=== PATIENT | male | born 1980 | race African-American/Black ===

== ENCOUNTER 2017-01-08 04:46 | Inpatient (IN) | payer OTHER ==
[2017-01-08] MEDS ORDERED: Albuterol/Ipratropium NEB.SOL* Albuterol 2.5 MG/Ipratropium 0.5 MG 3 ML ONE ×2 (04:55→08:47)
[2017-01-08] MEDS ORDERED: predniSONE TAB* 20 MG PO ONE (04:58)
[2017-01-08] MEDS ORDERED: Albuterol/Ipratropium NEB.SOL* Albuterol 2.5 MG/Ipratropium 0.5 MG 3 ML INH ONE ×2 (04:58→05:54)
[2017-01-08] MEDS ORDERED: NS 0.9% 1000 ML* 1,000 ML IV ONE ×3 (05:07→09:46)
[2017-01-08] MEDS ORDERED: Magnesium Sulfate 1 GM IV* 1 GM/100 ML BAG IV ONE ×2 (05:16→07:28)
[2017-01-08] MEDS: Albuterol/Ipratropium NEB.SOL* Albuterol 2.5 MG/Ipratropium 0.5 MG 3 ML INH ONE ×2 (05:27→08:49)
[2017-01-08] MEDS ORDERED: EPINEPHrine AMP 1 MG/ML IM ONE (05:53)
[2017-01-08 06:29] LABS: Hematocrit 42 % (42-52); Hemoglobin 14.2 g/dl (14.0-18.0); Mean Corpuscular HGB Conc 34 g/dl (31-36); Mean Corpuscular Hemoglobin 32 pg (27-31); Mean Corpuscular Volume 93 fL (80-94); Mean Platelet Volume 7 um3 (7.4-10.4); Platelet Count 211 10^3/ul (150-450); Red Cell Distribution Width 15 % (10.5-15); White Blood Count 9.6 10^3/ul (3.5-10.8)
[2017-01-08] MEDS ORDERED: EPINEPHrine,Rac 2.25% NEB.SOL* 0.5 ML INH ONE (06:39)
[2017-01-08 06:45] LABS: EGFR Non-African American 79.5 (>60)
[2017-01-08] MEDS ORDERED: NS 0.9% 1000 ML* 2,000 ML IV ONE ×2 (07:12→12:35)
--- NOTE | 2017-01-08 07:14 | ED ---
Aman Voss Thomas, scribed for Norbert Espinosa MD on 01/08/17 at 0459 . Shortness of Breath - HPI Summary HPI Summary: The pt is a 36 y/o M with a Hx of asthma presenting to the ED c/o SOB for the last three days that worsened in the last four hours. The patient ran out of his inhaler. Pt additionally c/o cough (since yesterday) and wheezing (since yesterday). Pt denies fever. He has never been hospitalized or intubated for his asthma. - History of Current Complaint Chief Complaint: EDShortnessOfBreath Time Seen by Provider: 01/08/17 04:51 Hx Obtained From: Patient Onset/Duration: Lasting Days - 4, Still Present, Worse Since - last four hours Timing: Constant Dyspnea At: Rest Alleviating Factors: Nothing Associated Signs & Symptoms: Cough (Nonproductive), Wheezing - Allergy/Home Medications Allergies/Adverse Reactions: Allergies Allergy/AdvReac Type Severity Reaction Status Date / Time No Known Allergies Allergy Verified 01/08/17 04:51 PMH/Surg Hx/FS Hx/Imm Hx Previously Healthy: No Endocrine/Hematology History: Denies: Hx Diabetes Respiratory History: Reports: Hx Asthma - Surgical History Surgery Procedure, Year, and Place: None. Infectious Disease History: No Infectious Disease History: Denies: Traveled Outside the [place] in Last 30 Days - Social History Alcohol Use: Unknown Smoking Status (MU): Unknown if Ever Smoked - Additional Comments History Additional Comments: Social history: patient is on vacation from [facility] and has been in the [place] for the last four days. Smoking status and alcohol use is unknown at this time. Review of Systems Negative: Fever Positive: Shortness Of Breath, Cough - since yesterday, Other - Wheezing (since yesterday) All Other Systems Reviewed And Are Negative: Yes Physical Exam Vital Signs On Initial Exam: Initial Vitals Temp Pulse Resp BP Pulse Ox 98.5 F 142 32 167/88 93 01/08/17 04:48 01/08/17 04:48 01/08/17 04:48 01/08/17 04:48 01/08/17 04:48 Appearance: Positive: Well-Appearing, No Pain Distress Skin: Positive: Warm, Skin Color Reflects Adequate Perfusion, Dry Head/Face: Positive: Normal Head/Face Inspection Eyes: Positive: EOMI, PLIO ENT: Positive: Normal ENT inspection, Other - There is no nasal discharge. Moist mucous membranes. Neck: Positive: Supple, Nontender Respiratory/Lung Sounds: Positive: Other - He is in the tripod position. He is globally diminished with rales. He is in moderate respiratory distress. Cardiovascular: Positive: Tachycardia, Other - Regular rhythm. Abdomen Description: Positive: Nontender, Soft Bowel Sounds: Positive: Present Musculoskeletal: Positive: Normal, Strength/ROM Intact. Negative: Edema Left, Edema Right Neurological: Positive: Normal, Sensory/Motor Intact, Alert, Oriented to Person Place, Time Diagnostics - Vital Signs Vital Signs Temp Pulse Resp BP Pulse Ox 01/08/17 04:48 98.5 F 142 32 167/88 93 - Laboratory Lab Results: Lab Results 01/08/17 01/08/17 01/08/17 Range/Units 06:11 06:11 06:11 WBC 9.6 (3.5-10.8) 10^3/ul RBC 4.50 (4.0-5.4) 10^6/ul Hgb 14.2 (14.0-18.0) g/dl Hct 42 (42-52) % MCV 93 (80-94) fL MCH 32 H (27-31) pg MCHC 34 (31-36) g/dl RDW 15 (10.5-15) % Plt Count 211 (150-450) 10^3/ul MPV 7 L (7.4-10.4) um3 Patient Temperature ABG pH (7.35-7.45) ABG pH (Temp Correct) ABG pCO2 (35-45) mmHg ABG pCO2 (Temp Corrct ABG pO2 (80-100) mmHg ABG pO2 (Temp Correct ABG HCO3 (19-31) mmol/L ABG O2 Saturation (95-98) % ABG Base Excess (-2.0-2.0) Respiration Rate O2 Delivery Device Ventilator Type Vent Mode FiO2 Inspiratory Time PEEP Pressure Support Pressure Control EPAP IPAP BiPAP Sodium 139 (133-145) mmol/L Potassium 3.8 (3.5-5.0) mmol/L Chloride 102 (101-111) mmol/L Carbon Dioxide 20 L (22-32) mmol/L Anion Gap 17 H (2-11) mmol/L BUN 11 (6-24) mg/dL Creatinine 1.06 (0.67-1.17) mg/dL Est GFR ( Amer) 102.2 (>60) Est GFR (Non-Af Amer) 79.5 (>60) BUN/Creatinine Ratio 10.4 (8-20) Glucose 149 H (70-100) mg/dL Lactic Acid 7.9 H* (0.5-2.0) mmol/L Calcium 8.9 (8.6-10.3) mg/dL Total Bilirubin 0.60 (0.2-1.0) mg/dL AST 30 (13-39) U/L ALT 53 H (7-52) U/L Alkaline Phosphatase 60 (34-104) U/L Total Protein 7.4 (6.4-8.9) g/dL Albumin 4.6 (3.2-5.2) g/dL Globulin 2.8 (2-4) g/dL Albumin/Globulin Ratio 1.6 (1-3) 01/08/17 Range/Units 06:12 WBC (3.5-10.8) 10^3/ul RBC (4.0-5.4) 10^6/ul Hgb (14.0-18.0) g/dl Hct (42-52) % MCV (80-94) fL MCH (27-31) pg MCHC (31-36) g/dl RDW (10.5-15) % Plt Count (150-450) 10^3/ul MPV (7.4-10.4) um3 Patient Temperature Not Reportable ABG pH 7.21 L (7.35-7.45) ABG pH (Temp Correct) Not Reportable ABG pCO2 47 H (35-45) mmHg ABG pCO2 (Temp Corrct Not Reportable ABG pO2 128 H (80-100) mmHg ABG pO2 (Temp Correct Not Reportable ABG HCO3 17.8 L (19-31) mmol/L ABG O2 Saturation 99.6 H (95-98) % ABG Base Excess -9.1 L (-2.0-2.0) Respiration Rate Not Reportable O2 Delivery Device Nc with neb = 10lpm Ventilator Type Not Reportable Vent Mode Not Reportable FiO2 Not Reportable Inspiratory Time Not Reportable PEEP Not Reportable Pressure Support Not Reportable Pressure Control Not Reportable EPAP Not Reportable IPAP Not Reportable BiPAP Not Reportable Sodium (133-145) mmol/L Potassium (3.5-5.0) mmol/L Chloride (101-111) mmol/L Carbon Dioxide (22-32) mmol/L Anion Gap (2-11) mmol/L BUN (6-24) mg/dL Creatinine (0.67-1.17) mg/dL Est GFR ( Amer) (>60) Est GFR (Non-Af Amer) (>60) BUN/Creatinine Ratio (8-20) Glucose (70-100) mg/dL Lactic Acid (0.5-2.0) mmol/L Calcium (8.6-10.3) mg/dL Total Bilirubin (0.2-1.0) mg/dL AST (13-39) U/L ALT (7-52) U/L Alkaline Phosphatase (34-104) U/L Total Protein (6.4-8.9) g/dL Albumin (3.2-5.2) g/dL Globulin (2-4) g/dL Albumin/Globulin Ratio (1-3) Result Diagrams: 01/08/17 06:11 01/08/17 06:11 ABG Interpretation: acidosis, CO2 retention Lab Statement: Any lab studies that have been ordered have been reviewed, and results considered in the medical decision making process. - Radiology CXR Xray Interpretation: No Acute Changes - Hyperinflation. No infiltrate. Radiology Interpretation Completed By: Radiologist - EKG 06:00 Cardiac Rate: Tachycardia EKG Rhythm: Sinus Tachycardia - at 13 BPM. EKG Interpretation: Normal axis. Normal interval. Nonspecific ST changes, likely rate related. Re-Evaluation - Re-Evaluation First Eval Re-Evaluation Time: 05:51 Change: Unchanged Comment: He is still wheezing and tachycardic. I will call the hospitalists to admit this patient. Second Eval Re-Evaluation Time: 07:02 Change: Improved Comment: Work of breathing on the BiPap is much improved. Course/Dx - Course Course Of Treatment: Pt presents with resp distress and diffuse wheezing. 3 tx on arrival with min change. IV fluids, IV magnesium then given. Again, min change. Labs/CXR obtained. IM epi then given but had to be transitioned to Bipap. Racemic epi and additional fluids given. D/W Hospitalist, admit ICU. - Diagnoses Provider Diagnoses: Status asthmaticus, Respiratory failure - Physician Notifications Discussed Care of Patient With: Henrietta Brooks Time Discussed With Above Provider: 06:20 Instructed by Provider To: Admit As Inpatient - Dr. Brooks will give report to the incoming day hospitalist. The patient will be admitted to the ICU. - Critical Care Time Critical Care Time: 75-104 min - 75 minutes. CCT is EXCLUSIVE of separately billable procedures. Discharge - Discharge Plan Condition: Guarded Disposition: ADMITTED TO [facility] Discharge Disposition Comment: to the ICU. Referrals: No Primary Care Phys,NOPCP [Primary Care Provider] - The documentation as recorded by the Aman infante Thomas accurately reflects the service I personally performed and the decisions made by , Norbert Espinosa MD.
[2017-01-08] MEDS ORDERED: Albuterol/Ipratropium NEB.SOL* Albuterol 2.5 MG/Ipratropium 0.5 MG 3 ML INH PRN (07:16)
[2017-01-08] MEDS ORDERED: methylPREDNISolone 125 MG* 2 ML VIAL IV ONE (07:18)
[2017-01-08] MEDS ORDERED: LORazepam INJ* 2 MG/ML 1 ML VIAL IV PUSH ONE ×5 (07:27→15:54)
[2017-01-08] MEDS ORDERED: Albuterol 2.5 MG/3 ML NEB.SOL* (0.083%) ONE ×2 (07:29→17:09)
--- NOTE | 2017-01-08 08:22 | RAD ---
INDICATION: Shoulder breath. Asthma. COMPARISON: None TECHNIQUE: An AP portable view obtained at 0626 hours is submitted. FINDINGS: Bones/Soft Tissues: There are no acute bony findings. Cardiomediastinal: The cardiomediastinal silhouette is normal. Lungs: There are no infiltrates. Pleura: There are no pleural effusions. Other: None IMPRESSION: NORMAL CHEST
[2017-01-08] MEDS: NS 0.9% 1000 ML* 1,000 ML IV SCH ×3 (09:06→18:53)
[2017-01-08] MEDS: LORazepam INJ* 2 MG/ML 1 ML VIAL IV PUSH PRN ×2 (09:38→15:36)
[2017-01-08] MEDS ORDERED: Morphine INJ* 2 MG/ML 1 ML SYRINGE (TWO MG - NEW SYRINGE VERSION) IV PRN (10:05)
[2017-01-08] MEDS: Levalbuterol 1.25MG/0.5ML NEB ONE ×6 (10:39→11:58)
[2017-01-08] MEDS: Levalbuterol 1.25MG/0.5ML NEB INH PRN ×2 (10:40→11:57)
[2017-01-08] MEDS ORDERED: Azithromycin IV(*) 500 MG in D5W 250 ML BAG* 250 ML IVPB SCH (11:00)
--- NOTE | 2017-01-08 11:33 | CONSULT ---
Consult Consult: CRITICAL CARE MEDICINE DATE: 01/08/17 TIME: 935 REFERRING PROVIDER: Missael REASON/CHIEF COMPLAINT: status asthmaticus HISTORY OF PRESENT ILLNESS: 36 M from [facility], visiting here last 4 days for work with progressive sob. H/o asthma, but never hospitalized. Has required systemic steroids in the past. 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 Utilizes inhalers at home but does not have with him currently. Denies other meds, recreational meds, denies marijuana, tobacco, cocaine specifically. Feels a little better now on bipap since arrival. Hr 130-140s post albuterol tx x9 and epi IM and INH. Per resp, poor to no air movement on exam on admission now evolved post tx into diffuse wheezing. moving better vol on bipap 18/8, FI02 40 % with MV ~18lpm and rr >30. He is tolerating. Denies pain. Denies any abd pain, not capo feeling sore. Denies Cp, fever, chills, shakes. REVIEW OF SYSTEMS: As per HPI. Otherwise limited sec to acuity. PAST MEDICAL HISTORY: As per HPI. MEDICATIONS: inhaler (type unknown, assuming albuterol or substitute) ALLERGIES: NKDA SOCIAL HISTORY: Reviewed. FAMILY HISTORY: Noncontributory at present. PHYSICAL EXAM: Vital Signs: Reviewed. As above. Neurologic: awake, communicating, but lethargic HEENT: anicteric, mm dry but ok. No appreciable adenopathy. No upper stridor. Cardiovascular: tachy, distant, no m Respiratory: tachypnea with diffuse wheeze R>L, forced exhalation but not paradoxical. Abdomen: overweight and seems distended but he denies, and no pain to palpation nor edema Extremities: warm, no edema Access: piv LABS: Reviewed. IMAGING: Reviewed. CXR mild hyperinflation perhaps with prominent vasc but otherwise no acute disease; ECG with mild nonspecific ST changes related to rate ; no acute injury current MEDICATIONS: Reviewed. ASSESSMENT: 36 M Acute Status Asthmaticus Acute hypoxic and hypercarbic resp failure Lactic acidosis sec to wob PLAN: Neurologic: Lethargy more related to benzos. tolerable but would rather further ativan and prn morphine to allow some sedation affects to foster longer exhalation flow and allow better dissipation of bronchospasm. can even consider ketamine or precedex gtt if taking a longer time to dissipate. Cardiovascular: Perfusing. LHas LA, more from wob +/- epi, however still with acid burden that requires dilution and clearance. tachycardia induced but these as well as albuterol. Respiratory: on bipap continued for a few more hours. greatly want to avoid intubation. change to continous xopenox tx. need time for systemic steroids to work; when off bipap will utilize inh steroids as well. no pna seen. however, viral, flu potentials may be high. check flu and can utilize aziothro for severity of bronchospasm and potential anti-inflam beneifts. close follow Gastrointestinal: wait on diet. H2 prn. Renal/Metabolic: Fluid boluses to maintain intravasc vol and allow LA dilution and clearance Infectious Disease: azithro as above. check flu, although no fever Hematology: stable. lovenox sq Endocrine: steroids. f/u BG Musculoskeletal: rest at the moment Psych/Social: f/u social dynamics Supportive and preventative care as ordered. Disposition: ICU co-management Code Status: Full Critical Care Time: 40min FEri Echavarria DO
[2017-01-08] MEDS: Enoxaparin(*) 40 MG/0.4 ML SYR SUBCUT SCH (12:01)
[2017-01-08] MEDS: methylPREDNISolone 125 MG* 2 ML VIAL IV SCH ×3 (12:01→23:55)
[2017-01-08] MEDS: Azithromycin IV(*) 500 MG in NS 0.9% 250 ML* 250 ML IVPB SCH (12:02)
--- NOTE | 2017-01-08 12:40 | HP ---
HISTORY AND PHYSICAL: DATE OF ADMISSION: 01/08/17 ADMITTING PHYSICIAN: Pravin Canas MD CHIEF COMPLAINT: Asthma attack, shortness of breath. HISTORY OF PRESENT ILLNESS: Concepcion Fox is a 36-year-old [place] gentleman with history of asthma, who comes in with acute respiratory distress. He has been visiting [place] in the [facility] for the last 4 days and seemingly ran out of his inhalers seemingly for 1 day. He is unable to give much history given respiratory distress on BiPAP. He does speak French. Initial sats were 93% on 3 L room air with tachycardia to the 130s. He was given epinephrine intramuscularly and then ordered racemic epi in addition to prednisone 60, 1 g of mag, albuterol nebs with some slight improvement, but ultimately requiring initiation of BiPAP for increased work of breathing, tachypnea to the 30s. ABG was obtained on 3 L initially at 7.21, pCO2 47, pO2 128, bicarb of 17.8. He is currently on BiPAP 18/8, 70% up from 40% with a repeat ABG pending. Lactic acid was 7.9. He is placed on q.20-minutes DuoNebs. Another gram of magnesium was ordered along with Solu-Medrol 125 mg q.[address] superintendent, Dr. Echavarria was consulted for help in managing this status asthmaticus. Given his BiPAP mask was taken off briefly for a respiratory treatment and he got acutely agitated, anxious, almost like a panic attack, he was given 1 mg of Ativan and now repeating 2 mg now with some improvement. PAST MEDICAL HISTORY: Asthma. HOME MEDICATIONS: Unable to be obtained currently, but include asthma inhalers , which the patient has run out of. FAMILY MEDICAL HISTORY: Unable to be obtained. SOCIAL HISTORY: The patient is a resident of [facility]. Otherwise, unable to be obtained. He does want to be a full code. Attempted to call his [employer] at [phone] (note international number), but did not get a response. REVIEW OF SYSTEMS: Unable to be obtained. PHYSICAL EXAMINATION GENERAL APPEARANCE: Anxious to increased work of breathing, wheezing, on BiPAP. HEENT: Normocephalic, atraumatic. Pupils are equally round and reactive to light. Extraocular motions intact. NECK: Supple. RESPIRATORY: Diffuse expiratory wheezing. No rhonchi appreciated. CARDIOVASCULAR: Tachycardic, regular. No murmurs, rubs, or gallops appreciated. ABDOMEN: Soft, nontender, nondistended. EXTREMITIES: Warm and well perfused. No peripheral edema. SKIN: No lesions. PSYCH: Anxious appearing. LABORATORY DATA: White count 9.6, hemoglobin 14.2, hematocrit 42, platelets 211. Sodium 139, potassium 3.8, chloride 102, carbon dioxide 20, BUN 11, creatinine 1.06, glucose 149, lactic acid 7.9. Total bili 0.6, AST 30, ALT 53, alk phos 60. ABG; 7.21, pCO2 47, pO2 128, bicarb 17.8 on 3 L. Chest x-ray, no acute process. EKG, sinus tachycardia. Heart rate 130s. No ST elevations or depressions. ASSESSMENT AND PLAN: Concepcion Fxo is a 36-year-old male with history of asthma seemingly ran out of his inhalers for at least 1 day. Other history limited by respiratory distress. I have ordered Solu-Medrol 125 q.6 hours and another gram of magnesium, 1 mg of Ativan followed by another 2 mg, and we will repeat that frequently as needed for anxiety or agitation. He is currently on BiPAP and transferred to the ICU. Dr. Echavarria, street superintendent has been consulted for further management. The patient is status post racemic epi, continuous DuoNeb q.20 minutes. The patient may ultimately need to be intubated if respiratory work of breathing does not improve in the next hour, though we will hold for now until Dr. Echavarria can assess the patient and the medications have time to respond. The patient is a full code. [id number]/CPS #: [id number] MTDD
[2017-01-08 14:04] LABS: EGFR Non-African American 88.1 (>60)
[2017-01-08] MEDS ORDERED: Sodium Bicarbonate 8.4% IV* 50 ML VIAL IV ONE (14:12)
[2017-01-08] MEDS ORDERED: Propofol* 100 ML ONE (14:51)
[2017-01-08] MEDS: fentaNYL* 50 MCG/ML 2 ML VIAL (100 MCG VIAL) ONE ×2 (15:00→15:08)
[2017-01-08] MEDS ORDERED: fentaNYL* 50 MCG/ML 2 ML VIAL (100 MCG VIAL) IV SLOW PU ONE ×3 (15:00→15:56)
[2017-01-08] MEDS ORDERED: Cisatracurium* 2 MG/ML MDV 5 ML ONE (15:17)
[2017-01-08] MEDS ORDERED: Sodium Bicarbonate 8.4%* 50 ML SYRINGE IV ONE (15:22)
[2017-01-08] MEDS ORDERED: NS 0.9% 1000 ML* 3,000 ML IV ONE (15:22)
[2017-01-08] MEDS ORDERED: Propofol* 10 MG/ML 20 ML BTL IV PUSH ONE (15:23)
[2017-01-08] MEDS ORDERED: Cisatracurium* 2 MG/ML MDV 5 ML IV ONE (15:30)
[2017-01-08] MEDS ORDERED: Sodium Bicarbonate 8.4%* 50 ML SYRINGE ONE (15:32)
--- NOTE | 2017-01-08 15:52 | PN ---
Progress Note - Progress Note Date of Service: 01/08/17 Note: CRITICAL CARE MEDICINE DATE: 01/08/17 TIME: 1425 Pt followed throughout the day. Seemed to settle a little bit with better flow phases, less forced exhalation, and better wheezes bl. Hr remained elevated in 130s-150s. BP stable. IVF boluses. Making urine. He felt a little better and wanted to try off bipap and placed on vapotx at 40lpm and 100%. At first he felt better and was happy to be able to talk better; states he wasn't able to talk much on admission. He states he felt fine prior to trip. only uses prednisone and inhaler with exacerbations. Has not been sick lately. Was fine on the plane and first 2 days here. About 20 hours of plane travel however. Explained his improved bronchospasm, although still needing more time. We discussed however further concerns regarding the lactic acidosis burden. He again declines any other drugs, no metformin etc. He thought he needed to come to ER for neb or 2 and would be good. We discussed even possibility then of clots, even clots to liver that may have exacerbated this or pe. Explained I was hopefully he could stabilize enough to go through CT perhaps to r/o such. However, soon after our discussion his labored breathing returned and acidosis shaking concerns. Had appearance of impending doom. I explained to him, the pressing need to move forwards (Especially with improved bronchospasm) so that we can stay ahead of his acidosis and also eval further ddx. He expressed understanding. I explained intubation, central line, and that we would take the necessary steps to allow him to improve well and quickly. He agreed. Intubation; aggressive tx to avoid return to status asthmaticus; Needs further IVF and LA clearnce. Sedate to dec O2 consumption. CT C/A/P now. Disposition: ICU Code Status: Full Critical Care Time: 65min additional, excluding procedures FEri Echavarria DO
[2017-01-08] MEDS ORDERED: cefTRIAXone VIAL(*) 1,000 MG in D5W 50 ML BAG* 50 ML IVPB ONE (16:00)
[2017-01-08] MEDS ORDERED: Iohexol 350* (CONTRAST) 500 ML MDV IV ONE (16:16)
--- NOTE | 2017-01-08 16:39 | PN ---
Progress Note - Progress Note Date of Service: 01/08/17 Note: CRITICAL CARE MEDICINE PROCEDURE NOTE DATE: 01/08/17 TIME: 1500 SERVICE: Critical Care Medicine LOCATION OF PROCEDURE: ICU PROCEDURE: Endotracheal intubation PROCEDURALIST: Dr. Echavarria Consent obtain: Yes, d/w pt Time out held: Not indicated INDICATION: Acute respiratory failure sec to status asthmaticus < severe lactic acidosis PROCEDURE: Oxygenation maintained and vitals monitored. Patient in supine position to HOB 15 degree Pre-medication with fentanyl 200mcg / propofol 150mg. Glidescope #3 inserted with Grade 1 view obtained. 8.0 endotracheal tube inserted to 23cm lip. Good chest rise with breath sounds appreciated in bilaterally lung collins. EtCO2 + color change. Imaging pending. Patient otherwise tolerated well. Rebekah Echavarria, DO
--- NOTE | 2017-01-08 17:08 | RAD ---
Indication: Hypoxia with respiratory failure, lactic acidosis. Contrast: Administered 100.4 ml of OMNIPAQUE 350 mg/ml CTA of the chest, CT of the abdomen and pelvis was performed after IV contrast administration. No oral contrast was administered. Coronal and sagittal reconstructed images were obtained. The pulmonary arterial tree is well opacified. No filling defects are noted to suggest pulmonary embolus. The aorta demonstrates no evidence of aortic dissection or aneurysmal dilatation. There is no mediastinal or hilar adenopathy. The inferior thyroid lobes demonstrates enlargement of the left lobe of the thyroid. Endotracheal tube and nasogastric tube appears to be in place. The trachea and major bronchi appear patent with no focal nodules. No definite alveolar consolidation is noted. No pleural fluid is identified. CT of the abdomen and pelvis demonstrates liver to be normal in size. No focal lesions or intrahepatic ductal dilatation is noted. The gallbladder demonstrates no calcified gallstones. No pericholecystic fluid or wall thickening is identified. The spleen is normal in size. No adrenal lesions are noted. The kidneys demonstrate symmetric nephrograms and excretion without evidence of hydronephrosis. No dilated loops of bowel are noted. Aorta and inferior vena cava are unremarkable. Small bowel demonstrates no abnormal dilatation. The urinary bladder is partially collapsed. The prostate is otherwise unremarkable. No hernias are noted. IMPRESSION: No abnormal masses or fluid collections are noted. No evidence of pulmonary embolus is noted. No evidence of thoracic aortic dissection is noted.
[2017-01-08] MEDS ORDERED: Albuterol 2.5 MG/3 ML NEB.SOL* (0.083%) INH ONE (17:11)
[2017-01-08] MEDS ORDERED: Albuterol 2.5 MG/3 ML NEB.SOL* (0.083%) INH PRN (17:27)
[2017-01-08] MEDS ORDERED: Morphine INJ* 10 MG/ML 1 ML CARPUJECT ONE (17:33)
[2017-01-08] MEDS: Propofol* 100 ML IV SCH ×3 (17:33→23:59)
--- NOTE | 2017-01-08 17:40 | PN ---
Progress Note - Progress Note Date of Service: 01/08/17 Note: CRITICAL CARE MEDICINE DATE: 01/08/17 TIME: 1710 Tolerated intubation. PCV seeming to serve him best but peaks will remain high. FiO2 down and wean. Maintain vent sync, and increase sedation as needed. Utilize prop gtt; add ketamine gtt, and will try to avoid paralytics. Continued nebs q1h. Can alternate between xopenox and albuteral to avoid hr exacerbation. Hr currently down to 110s. Certainly showing less metabolic consumption and CT scan benign to my eye. Settling out but still remains unclear of LA burden. Again, assumption has to be this is sec to wob and therefore should dissipate with dec wob O2 consumption and acid production and allow clearance via renal, and obviously problematic to clear more acid compensation from status asthmaticus lungs; at least he had progressive resp acidosis improvement pattern on blood gases and should hopefully be able to tolerate metabolic acid/lactate clearance to the point we can liberate him (as soon as tomorrow) and allow medication and support to continue to clear his asthma exac. Disposition: ICU Code Status: Full Critical Care Time: 30min additional Rebekah Echavarria DO
[2017-01-08] MEDS ORDERED: Morphine INJ* 10 MG/ML 1 ML CARPUJECT IV ONE (17:43)
[2017-01-08] MEDS ORDERED: NS 0.9% IVPB SCH ×2 (18:00→18:08)
[2017-01-08] MEDS ORDERED: KETAMINE HCL IVPB SCH ×2 (18:00→18:08)
[2017-01-08] MEDS: Albuterol 2.5 MG/3 ML NEB.SOL* (0.083%) INH SCH ×5 (19:20→23:24)
[2017-01-08] MEDS: Morphine INJ* 2 MG/ML 1 ML SYRINGE (TWO MG - NEW SYRINGE VERSION) IV PRN ×2 (19:45→20:50)
[2017-01-08] MEDS: Chlorhexidine MOUTHWASH 0.12%* 15 ML UDC TOPICAL SCH ×3 (20:21→23:55)
[2017-01-09] MEDS: Albuterol 2.5 MG/3 ML NEB.SOL* (0.083%) INH SCH ×19 (00:12→23:28)
[2017-01-09] MEDS: KETAMINE HCL IVPB SCH ×2 (01:38→07:51)
[2017-01-09] MEDS: NS 0.9% IVPB SCH ×2 (01:38→07:51)
[2017-01-09] MEDS: Chlorhexidine MOUTHWASH 0.12%* 15 ML UDC TOPICAL SCH (03:48)
[2017-01-09] MEDS: methylPREDNISolone 125 MG* 2 ML VIAL IV SCH ×4 (05:38→17:58)
[2017-01-09] MEDS: Propofol* 100 ML IV SCH ×2 (05:39→08:40)
[2017-01-09] MEDS ORDERED: EPINEPHRINE 1 MG/ML 1 ML VIAL ONE (06:01)
[2017-01-09 06:26] LABS: ABS Basophils 0 10^3/ul (0-0.2); ABS Eosinophils 0 10^3/ul (0-0.6); ABS Lymphocytes 0.6 10^3/ul (1.0-4.8); ABS Monocytes 0.7 10^3/ul (0-0.8); ABS Neutrophils 12.3 10^3/ul (1.5-7.7); ABS Nucleated RBC 0 10^3/ul; Eosinophil % 0 % (0-6); Hematocrit 32 % (42-52); Hemoglobin 10.8 g/dl (14.0-18.0); Lymphocyte % 4.6 % (25-47); Mean Corpuscular HGB Conc 34 g/dl (31-36); Mean Corpuscular Hemoglobin 32 pg (27-31); Mean Corpuscular Volume 92 fL (80-94); Mean Platelet Volume 7 um3 (7.4-10.4); Nucleated Red Blood Cells % 0; Platelet Count 167 10^3/ul (150-450); Red Blood Count 3.44 10^6/ul (4.0-5.4); Red Cell Distribution Width 15 % (10.5-15); White Blood Count 13.7 10^3/ul (3.5-10.8)
[2017-01-09 06:37] LABS: EGFR Non-African American 120.4 (>60)
[2017-01-09] MEDS ORDERED: Potassium Phosphate IV* 30 MMOLE in NS 0.9% 250 ML* 250 ML IVPB ONE (09:05)
[2017-01-09] MEDS ORDERED: POTASSIUM PHOSPHATE IVPB ONE (09:20)
[2017-01-09] MEDS ORDERED: D5W IVPB ONE (09:20)
[2017-01-09] MEDS ORDERED: KETAMINE HCL IVPB SCH (09:28)
[2017-01-09] MEDS ORDERED: NS 0.9% IVPB SCH (09:28)
--- NOTE | 2017-01-09 10:01 | PN ---
Progress Note - Progress Note Date of Service: 01/09/17 Note: CRITICAL CARE MEDICINE DATE: 01/09/17 TIME: 830 SUBJECTIVE: Patient seen and examined. better PHYSICAL EXAM: Vital Signs: Reviewed. Neurologic: awake, communicating, but drowsy on sedation HEENT: anicteric, +cuff leak Cardiovascular: tachy but better. distant, no m Respiratory: still with diffuse wheeze a little better on high level pcv. Abdomen: mild distention but nt Extremities: warm, dep edema Access: piv LABS: Reviewed. LA cleared. cx neg. IMAGING: Reviewed. CT benign. MEDICATIONS: Reviewed. ASSESSMENT: 36 M Acute Status Asthmaticus Acute hypoxic and hypercarbic resp failure Lactic acidosis sec to wob PLAN: Neurologic: off prop; may need to use ketamine at low dose today to help allievate wob if returning and for pulm vasc benefit. prn narcs and anxiolytics. Cardiovascular: Perfusing. able to clear LA. interstial vol up and intravasc well. off ivf. automobilize. Respiratory: liberate from vent as his bronchospasm unlikely to improve much more then it has on vent, and real reason for vent was unclearing metabolic acidsis from wob which is now dissipated and can utilize HFO2 and intermittent niv if needed until improved status. Nebs q1 and may need another continuous. Gastrointestinal: po later today as able. H2 Renal/Metabolic: fluid ok. replete phos. Infectious Disease: azithro alone for exac. cx neg. Hematology: stable. lovenox sq Endocrine: steroids at high dose tapered later today Musculoskeletal: rest Psych/Social: f/u social needs Supportive and preventative care as ordered. Disposition: ICU Code Status: Full Critical Care Time: 40min Rebekah Echavarria DO
[2017-01-09] MEDS: Azithromycin IV(*) 500 MG in NS 0.9% 250 ML* 250 ML IVPB SCH (11:23)
[2017-01-09] MEDS: Enoxaparin(*) 40 MG/0.4 ML SYR SUBCUT SCH (11:23)
[2017-01-09] MEDS: Mometasone/Formoter 200/5 MDI INH SCH ×2 (12:37→20:07)
[2017-01-10] MEDS: methylPREDNISolone 125 MG* 2 ML VIAL IV SCH ×2 (00:30→07:07)
[2017-01-10] MEDS: Albuterol 2.5 MG/3 ML NEB.SOL* (0.083%) INH SCH ×9 (02:17→23:15)
[2017-01-10 06:19] LABS: Hematocrit 33 % (42-52); Mean Corpuscular HGB Conc 34 g/dl (31-36); Mean Corpuscular Hemoglobin 31 pg (27-31); Mean Corpuscular Volume 91 fL (80-94); Mean Platelet Volume 8 um3 (7.4-10.4); Platelet Count 163 10^3/ul (150-450); Red Blood Count 3.56 10^6/ul (4.0-5.4); Red Cell Distribution Width 15 % (10.5-15); White Blood Count 14.6 10^3/ul (3.5-10.8)
[2017-01-10 06:36] LABS: EGFR Non-African American 122.3 (>60)
[2017-01-10] MEDS ORDERED: predniSONE TAB* 20 MG PO ONE (10:45)
[2017-01-10] MEDS: Mometasone/Formoter 200/5 MDI INH SCH ×2 (10:58→19:15)
--- NOTE | 2017-01-10 11:10 | PN ---
Progress Note - Progress Note Date of Service: 01/10/17 Note: CRITICAL CARE MEDICINE DATE: 01/10/17 TIME: 1015 SUBJECTIVE: Patient seen and examined. better again. bit weak overall PHYSICAL EXAM: Vital Signs: Reviewed. Neurologic: awake, communicating well. HEENT: anicteric, mmm Cardiovascular: tachy but better again. no m Respiratory: still with wheeze left >right but improved overall. nonlabored. Abdomen: soft Extremities: warm Access: piv LABS: Reviewed. IMAGING: Reviewed. MEDICATIONS: Reviewed. ASSESSMENT: 36 M Acute Status Asthmaticus Acute hypoxic and hypercarbic resp failure Lactic acidosis sec to wob Deconditioning PLAN: Neurologic: stable. Cardiovascular: Perfusing. vol ok. mobilize as able and allow HR equilibration. Respiratory: RA. nebs to q4. inh steroids. systemic steroids. can blunt cough- again question viral irratant vs environmental Gastrointestinal: po Renal/Metabolic: fluid ok. Infectious Disease: azithro x5 days. Hematology: stable. lovenox sq Endocrine: steroid taper till back home Musculoskeletal: oob Psych/Social: f/u social needs Supportive and preventative care as ordered. Disposition: to floor; hopeful disposition tomorrow or next and then pt looking to see when capable for airline travel as they were going to be in [place] for another week but flying back home next Wednesday. Should be ready by then, but would benefit from still having steroids and inh for trip. Code Status: Full Critical Care Time: 25min Rebekah Echavarria DO
[2017-01-10] MEDS: Azithromycin IV(*) 500 MG in NS 0.9% 250 ML* 250 ML IVPB SCH (11:56)
[2017-01-10] MEDS: Enoxaparin(*) 40 MG/0.4 ML SYR SUBCUT SCH (11:56)
[2017-01-10] MEDS: guaiFENesin/CODIEN 100MG-10MG* 5 ML UDC PO PRN (23:44)
[2017-01-11] MEDS: Albuterol 2.5 MG/3 ML NEB.SOL* (0.083%) INH SCH ×4 (03:18→14:14)
[2017-01-11] MEDS: guaiFENesin/CODIEN 100MG-10MG* 5 ML UDC PO PRN ×2 (03:49→08:47)
[2017-01-11] MEDS: Mometasone/Formoter 200/5 MDI INH SCH (07:52)
[2017-01-11] MEDS ORDERED: Azithromycin TAB* 250 MG PO SCH (09:00)
[2017-01-11] MEDS ORDERED: predniSONE TAB* 20 MG PO SCH (09:00)
[2017-01-11] MEDS ORDERED: Acetaminophen TAB* 325 MG PO PRN (09:22)
[2017-01-11 12:36] VITALS: BP 127/60
[2017-01-11] MEDS: Enoxaparin(*) 40 MG/0.4 ML SYR SUBCUT SCH (13:13)
--- NOTE | 2017-01-12 02:49 | DS ---
CC: Dr. Lai Echavarria * DISCHARGE SUMMARY: DATE OF ADMISSION: 01/08/17 DATE OF DISCHARGE: 01/11/17 PRIMARY CARE PHYSICIAN: The patient has no primary care provider in the [place]. MY ATTENDING WHILE IN THE HOSPITAL: Dr. Ilene Galeas * (DICTATED BY PARESH GRAVES) CONSULTING PROVIDER: Dr. Lai Echavarria. PRIMARY DISCHARGE DIAGNOSIS: Status asthmaticus. SECONDARY DISCHARGE DIAGNOSIS: None. STUDIES DONE WHILE IN THE HOSPITAL: Electrocardiogram from 01/08/17 shows sinus tachycardia with early repolarization in V3 and V4, T-wave flattening in V6. No other ST segment changes, possible left ventricular hypertrophy. No other abnormalities. Chest x-ray from 01/08/17 read as normal chest. CTA of the abdomen and pelvis from 01/08/17 read as no abnormal masses or fluid collections are noticed. No evidence of pulmonary embolus. No evidence of thoracic aortic dissection. MEDICATIONS AT DISCHARGE: 1. Tylenol 600 mg p.o. q.6 hours as needed. 2. Albuterol 2 puffs inhalation q.4 hours as scheduled. 3. Azithromycin 250 mg p.o. daily x3. 4. Dulera 2 puffs inhalation b.i.d. 5. Prednisone 40 mg p.o. daily x11. 6. Cheratussin one 6 or 5 mL q.4 hours as needed for cough. 7. Tessalon 200 mg p.o. q.8 hours as needed for cough. New medications at discharge: 1. Tylenol. 2. Azithromycin. 3. Dulera. 4. Prednisone. 5. Cheratussin benzonatate. Medications discontinued at discharge: 1. Salbutamol inhaler. 2. Budesonide inhaler. HOSPITAL COURSE: This is a brief summary of the patient's presentation. For more details, please see the history and physical from Dr. Pravin Canas on . In brief, the patient is a 36-year-old male with a past medical history as above, who is on a business trip from [facility] and presented to the emergency department with acute respiratory distress, which have been worsening for 4 days and got even worse after he ran out of his inhaler. The patient was initially put on BiPAP and an ABG showed severe acidosis with a pH of 7.21, pCO2 of 47, pO2 128, bicarb of 17.8, base excess of 9.1. Other pertinent lab abnormality showed a lactic acid of 7.9, creatine kinase of 276, ALT of 53. The patient denied any history of drug abuse. Repeat ABG showed worsening of acidosis worsening to 7.15, worsening pCO2 to 52, worsening pO2 to 56. The patient was admitted to the hospital for acute respiratory failure due to status asthmaticus. Chest x-ray and CT of the abdomen and pelvis were read as above. The patient was tachycardic, stable blood pressures. The patient was trialed off of BiPAP on the Vapotherm; however, the patient deteriorated further and was intubated to avoid returning into status asthmaticus. The patient was sedated, but not paralyzed. The patient was given continuous nebulizer every 1 hour. The patient remained intubated for approximately 14 hours and the ventilator was removed. The patient was transitioned to high flow O2. The patient was started on azithromycin. The patient was on Solu- Medrol at this time, 125 mg q.6 hours for one day. The patient was then tapered down to oral prednisone at 60 mg a day. The patient continued to improve on 01/09/17 and into 01/10/17 without abnormalities. The patient continued to have wheezes in his lungs on the left side greater than the right and overall improved. The patient's tachycardia resolved. The patient's lactic acidosis improved. The patient was transferred from the intensive care unit to the medical floor. The patient was seen and examined on 01/11/17 and was ambulating out in the unit without any shortness of breath. The patient was on schedule to ambulate every 4 hours and continued to have some moderate wheezes in his lungs, but had no shortness of breath and only complaint was a persistent dry cough unresponsive to antitussive medication. The patient was amenable to discharge on all interventions and to follow up with his primary care doctor in [facility] as soon as he returned on Wednesday or Wednesday of or January. PHYSICAL EXAM ON DAY OF DISCHARGE: General: The patient is a 36-year-old male who appears stated age and is lying comfortably in the bed in no acute distress. Vital signs at the time of discharge: Temperature 98.2, heart rate 99, respiratory rate 16, oxygen saturation 99% on room air, blood pressure 127/ 60. HEENT: Head normocephalic, atraumatic. Sclerae anicteric. No conjunctival injection. Nasal mucosa moist without discharge. Oral mucosa moist. No pharyngeal erythema. No postnasal drip. Neck: Supple, nontender. No lymphadenopathy. No carotid bruit auscultated. Cardiac: Regular rate and rhythm. No clicks, murmurs, gallops, or rubs. Pulses 2+ in the bilateral dorsalis pedis, posterior tibialis, and radial areas. Respiratory: Moderate expiratory wheezes with slightly prolonged expiratory phase. No accessory muscle usage, good air exchange bilaterally. Abdomen: Soft, nontender, nondistended. Bowel sounds present, normoactive in all 4 quadrants. No hepatosplenomegaly. No abdominal bruits auscultated. Genitourinary: No CVA tenderness or suprapubic tenderness. Skin: Clean, dry, intact. No rash. Neuro: Cranial nerves II through XII grossly intact. No focal deficits. Normal gait. Alert and oriented x3. Psychiatric: Pleasant and cooperative. LABORATORY DATA ON DAY OF DISCHARGE: White blood cell count 14.6, hemoglobin 11 , hematocrit 33, platelet count 163. Sodium 142, potassium 3.6, chloride 108, carbon dioxide 28. Creatinine 0.73, glucose 140, calcium 7.9, phosphorus 2.9, potassium 2.6. DISCHARGE PLAN: The patient will be discharged on oral prednisone, Dulera inhaler scheduled rescue, albuterol scheduled, albuterol inhalers, antitussives and Tylenol for pain and fever. The patient should continue these until he travels back to [facility] on Wednesday and should follow up his primary care doctor to assess for continued need for this level of treatment at that time. The patient should engage in activity as tolerated, avoiding respiratory irritants. The patient should have a normal regular unrestricted diet. The patient should avoid foods high in nitrates and NSAIDs and anything else that has previously exacerbated his asthma. The patient is to return to the hospital for acute respiratory distress or other alarming symptoms. TIME SPENT: Approximately 60 minutes were spent on this discharge, 35 minutes were spent on [id number] with the patient obtaining history and physical and discussing treatment plan. PARESH GRAVES [id number]/[facility] #: [id number] OUM[place]
== END 2017-01-11 14:30 | disposition home or self-care (01) | DRG 141 ==
LOC: ED 04:46 → ICU 07:14 → MED 01-10 13:56
PROVIDERS: ADMIT Internal Medicine; ATTEND Internal Medicine
PROC: 5A09457 Assistance with Respiratory Ventilation, 24-96 Consecutive Hours, Continuous Positive Airway Pressure (ICD-10-PCS; 2017-01-07)
PROC: 0BH17EZ Insertion of Endotracheal Airway into Trachea, Via Natural or Artificial Opening (ICD-10-PCS; principal; 2017-01-08)
PROC: 5A1935Z Respiratory Ventilation, Less than 24 Consecutive Hours (ICD-10-PCS; 2017-01-08)
DX: J45.902 Unspecified asthma with status asthmaticus (principal); J96.01 Acute respiratory failure with hypoxia; J96.02 Acute respiratory failure with hypercapnia; E87.2 Acidosis
CPT/HCPCS: 36415; 36600; 71010; 71275; 74177; 80048; 80053; 80076; 80307; 82550; 82803; 83605; 83735; 84100; 85025; 85027; 85379; 87070; 87077; 87186; 87205; 87252; 87253; 87254; 87502; 87641; 93005; 94002; 94003; 94640; 94660; 94760; A9270-GY; J0171; J0456; J0696; J1650; J2060; J2270; J2704; J2930; J3010; J3475; J7512; Q9967